=== PATIENT | male | born 1990 | race Caucasian/White ===

== ENCOUNTER 2023-10-22 22:33 | Emergency (ER) | payer OTHER ==
[2023-10-22 22:49] VITALS: TEMP 97.8
[2023-10-22 23:14] LABS: Absolute Neutrophil Ct (ANC) 4.81 x10^3/uL (1.4-6.9); BASOPHIL % 0.4 % (0.0-0.4); Basophil (Absolute #) 0.03 x10^3/uL (0-0.4); Eosinophil % 2.8 % (0.00-5.0); Hematocrit 40.4 % (42-50); Hemoglobin 13.4 g/dL (12.5-18.0); IMMATURE GRAN # 0.02 x10^3u/L (0.00-0.03); IMMATURE GRAN % 0.3 % (0.00-0.4); Lymphocyte (Absolute #) 1.69 x10^3/uL (1.0-4.6); Mean Cell Volume 95.7 fL (78-100); Mean Corpuscular Hemoglobin 31.8 pg (26-32); Mean Corpuscular Hgb Concent. 33.2 g/dL (32-36); Mean Platelet Volume 11.4 fL (7.5-11.0); Monocytes % 4.3 % (0.0-12.0); Neutrophil % 68.2 % (36.0-66.0); Platelet Count 126 x10^3/uL (150-450); Red Blood Count 4.22 x10^6/uL (4.1-5.6); Red Cell Distribution Width 13.5 % (11.5-14.0); White Blood Count 7.1 x10^3/uL (4.0-10.5)
[2023-10-22 23:31] LABS: ACETAMINOPHEN < 10 ug/ml (10-30); ETHYL ALCOHOL < 10 mg/dL (0-10); SALICYLATE < 1.0 mg/dL (2-20)
[2023-10-22 23:32] LABS: ALBUMIN 4.7 g/dL (3.5-5.0); ANION GAP 17.5 MEQ/L (5-15); BILIRUBIN,TOTAL 0.4 mg/dL (0.2-1.3); Calcium 9.3 mg/dL (8.4-10.2); Creatinine 1 1.29 mg/dL (0.66-1.25); EST GLOMERULAR FILTRATION RATE 75.1 ML/MIN; Potassium 3.7 mmol/L (3.5-5.1); Total Protein 7.1 g/dL (6.3-8.2)
--- NOTE | 2023-10-22 23:37 | ERPHSYRPT ---
- History of Present Illness Source: EMS Exam Limitations: clinical condition Patient Subjective Stated Complaint: PT IS SEDATED PER EMS Triage Nursing Assessment: Pt presents to the ER by [facility] for seizure that occurred at approx 2100. Pt reported to had been seizing for 1 hour prior to EMS arrive. Full tonic-clonic seizures upon EMS arrival. EMS gave pt 2mg Narcan and 5mg Versed. Pt arrives to ER sedated and responsive to painful stimuli. Pt has hx of Seizures. Skin is pale, warm, and dry. noted to have slight decorticate posterioring. Pt pupils are PERRL 2mm bilaterally. Respirations are shallow but equal. Lungs clear throughout. Abdomen soft and non tender. Physician History: Patient is a 30-year-old male with a known seizure disorder who had a seizure at his house this evening. [facility] arrived at the scene and gave the patient 5 mg IV Versed and placed a nasal trumpet in. Patient arrived to the ER somnolent but with a good airway and was gradually starting to awaken. Baseline/Normal Cognition: alert oriented x 3 Allergies/Adverse Reactions: sulfamethoxazole [From Bactrim] Allergy (Unknown, Verified 10/22/23 22:50) trimethoprim [From Bactrim] Allergy (Unknown, Verified 10/22/23 22:50) Home Medications: Lamotrigine 100 mg [lamICTAL 100MG TABLET] 100 mg PO HS 10/22/23 [History] Levetiracetam 500 MG/5 ML [Keppra 500 MG/5 ML] 1,500 mg PO BID 10/22/23 [History] Hx Tetanus, Diphtheria Vaccination/Date Given: No (unknown) Hx Influenza Vaccination/Date Given: No (unknown) Hx Pneumococcal Vaccination/Date Given: No (unknown) Immunizations Up to Date: No (unknown) Travel Risk - International Travel Have you traveled outside of the country in past 3 weeks: No - Coronavirus Screening Are you exhibiting any of the following symptoms?: No Close contact with a COVID-19 positive Pt in past 14-21 Days: No - Vaccine Status Have you recieved a Covid-19 vaccination: No (unknown) - Review of Systems All Other Systems: Unable due to condition - Past Medical History Pertinent Past Medical History: Yes Neurological History: Epilepsy Other Medical History: unknown hx other than epilespy - Past Surgical History Past Surgical History: No (unknown) - Social History Smoking Status: Unknown if ever smoked Exposure to second hand smoke: (unknown) Patient Lives Alone: (unknown) - Nursing Vital Signs Nursing Vital Signs: Initial Vital Signs Temperature 97.8 F 10/22/23 22:36 Pulse Rate 82 10/22/23 22:36 Respiratory Rate 18 10/22/23 22:36 Blood Pressure 106/62 10/22/23 22:36 O2 Sat by Pulse Oximetry 100 10/22/23 22:36 Pain Scale Pain Intensity 0 WNL - [place] Coma Scale Best Eye Response ([place]): (3) open to voice Best Verbal Response ([place]): (4) confused conversation Best Motor Response ([place]): (5) localizes to pain [place] Total: 12 - Physical Exam General Appearance: lethargy (Postictal) Eye Exam: bilateral eye: normal inspection, PERRL, EOMI Ears, Nose, Throat Exam: normal ENT inspection, TMs normal, pharynx normal, moist mucous membranes Neck Exam: normal inspection, non-tender, supple, full range of motion, No meningismus, No mass, No Brudzinski, No Kernig's, No carotid bruit Respiratory: normal breath sounds, lungs clear, airway intact, No respiratory distress Cardiovascular: regular rate/rhythm, normal heart sounds, normal peripheral pulses, capillary refill <2 sec, No murmur Gastrointestinal: soft, normal bowel sounds, No tenderness Back Exam: normal inspection, normal range of motion Extremity Exam: normal inspection, normal range of motion Peripheral Pulses: carotid (R): 2+, carotid (L): 2+ Mental Status: lethargy DTR: bicep (R): 2+, bicep (L): 2+ Skin Exam: pale SpO2 Interpretation: normal SpO2: 99 O2 Delivery: Room Air - Course Nursing assessment & vital signs reviewed: Yes EKG Interpreted by Me: RATE (Normal sinus rhythm/rate 73/normal QT-QTc/right bundle branch block/nonspecific ST- T wave changes.) - CT Exams Head CT Interpretation: Tele-radiologist Report (Mildly dilated ventricles) Ordered Tests: Active Orders 24 hr Category Date Time Status EKG-ER Only STAT Care 10/22/23 22:38 Active HEAD WITHOUT CONTRAST [CT] Stat Exams 10/22/23 22:42 Completed ACETAMINOPHEN Stat Lab 10/22/23 23:10 Completed CBC W DIFF Stat Lab 10/22/23 23:10 Completed CMP Stat Lab 10/22/23 23:10 Completed ETHYL ALCOHOL Stat Lab 10/22/23 23:10 Completed SALICYLATE Stat Lab 10/22/23 23:10 Completed TROPONIN Q4H Lab 10/22/23 23:10 Completed TROPONIN Q4H Lab 10/23/23 02:45 Ordered TROPONIN Q4H Lab 10/23/23 06:45 Ordered Urine Triage Profile Stat Lab 10/23/23 00:40 Completed Medication Summary Discontinued Medications Generic Name Dose Route Start Last Admin Trade Name Freq PRN Reason Stop Dose Admin Acetaminophen 1,000 mg 10/23/23 00:12 10/23/23 00:34 Acetaminophen 500 Mg Tablet PO 10/23/23 00:13 1,000 mg STAT ONE Administration Acetaminophen Confirm 10/23/23 00:30 Acetaminophen 500 Mg Tablet Administered 10/23/23 00:31 Dose 1,000 mg .ROUTE .STK-MED ONE Levetiracetam 500 mg/ Dextrose 105 mls @ 400 mls/hr 10/22/23 23:49 10/23/23 00:34 IV 10/23/23 00:04 400 mls/hr STAT ONE Administration Dextrose Confirm 10/23/23 00:31 D5w 100ml Mini Bag 100 Ml Administered 10/23/23 00:32 Dose 100 mls @ ud IV .STK-MED ONE Levetiracetam Confirm 10/23/23 00:30 Levetiracetam 500 Mg/5 Ml Vial Administered 10/23/23 00:31 Dose 500 mg .ROUTE .STK-MED ONE Lab/Rad Data: Laboratory Result Diagrams 10/22/23 23:10 10/22/23 23:10 Laboratory Results 10/23/23 10/22/23 10/22/23 Range/Units 00:40 23:10 23:10 WBC (4.0-10.5) x10^3/uL RBC (4.1-5.6) x10^6/uL Hgb (12.5-18.0) g/dL Hct (42-50) % MCV (78-100) fL MCH (26-32) pg MCHC (32-36) g/dL RDW (11.5-14.0) % Plt Count (150-450) x10^3/uL MPV (7.5-11.0) fL Gran % (36.0-66.0) % Immature Gran % (Auto) (0.00-0.4) % Nucleat RBC Rel Count (0.00-0.1) % Eos # (Auto) (0-0.5) x10^3/uL Immature Gran # (Auto) (0.00-0.03) x10^3u/L Absolute Lymphs (auto) (1.0-4.6) x10^3/uL Absolute Monos (auto) (0.0-1.3) x10^3/uL Absolute Nucleated RBC (0.00-0.01) x10^3u/L Lymphocytes % (24.0-44.0) % Monocytes % (0.0-12.0) % Eosinophils % (0.00-5.0) % Basophils % (0.0-0.4) % Absolute Granulocytes (1.4-6.9) x10^3/uL Basophils # (0-0.4) x10^3/uL Sodium (137-145) mmol/L Potassium (3.5-5.1) mmol/L Chloride (98-107) mmol/L Carbon Dioxide (22-30) mmol/L Anion Gap (5-15) MEQ/L BUN (9-20) mg/dL Creatinine (0.66-1.25) mg/dL Estimated GFR ML/MIN Glucose (74-106) mg/dL Calcium (8.4-10.2) mg/dL Total Bilirubin (0.2-1.3) mg/dL AST (17-59) U/L ALT (0-50) U/L Alkaline Phosphatase (38-126) U/L Troponin I < 0.012 (0.000-0.034) ng/mL Serum Total Protein (6.3-8.2) g/dL Albumin (3.5-5.0) g/dL Salicylates < 1.0 L (2-20) mg/dL Urine Opiates Level NEGATIVE (NEGATIVE) Ur Methadone NEGATIVE (NEGATIVE) Acetaminophen < 10 L (10-30) ug/ml Urine Barbiturates NEGATIVE (NEGATIVE) Ur Phencyclidine (PCP) NEGATIVE (NEGATIVE) Urine Amphetamine NEGATIVE (NEGATIVE) U Benzodiazepine Level POSITIVE A (NEGATIVE) Urine Cocaine NEGATIVE (NEGATIVE) Urine Marijuana (THC) NEGATIVE (NEGATIVE) Ethyl Alcohol < 10 (0-10) mg/dL 10/22/23 10/22/23 Range/Units 23:10 23:10 WBC 7.1 (4.0-10.5) x10^3/uL RBC 4.22 (4.1-5.6) x10^6/uL Hgb 13.4 (12.5-18.0) g/dL Hct 40.4 L (42-50) % MCV 95.7 (78-100) fL MCH 31.8 (26-32) pg MCHC 33.2 (32-36) g/dL RDW 13.5 (11.5-14.0) % Plt Count 126 L (150-450) x10^3/uL MPV 11.4 H (7.5-11.0) fL Gran % 68.2 H (36.0-66.0) % Immature Gran % (Auto) 0.3 (0.00-0.4) % Nucleat RBC Rel Count 0.0 (0.00-0.1) % Eos # (Auto) 0.20 (0-0.5) x10^3/uL Immature Gran # (Auto) 0.02 (0.00-0.03) x10^3u/L Absolute Lymphs (auto) 1.69 (1.0-4.6) x10^3/uL Absolute Monos (auto) 0.30 (0.0-1.3) x10^3/uL Absolute Nucleated RBC 0.00 (0.00-0.01) x10^3u/L Lymphocytes % 24.0 (24.0-44.0) % Monocytes % 4.3 (0.0-12.0) % Eosinophils % 2.8 (0.00-5.0) % Basophils % 0.4 (0.0-0.4) % Absolute Granulocytes 4.81 (1.4-6.9) x10^3/uL Basophils # 0.03 (0-0.4) x10^3/uL Sodium 139 (137-145) mmol/L Potassium 3.7 (3.5-5.1) mmol/L Chloride 102 (98-107) mmol/L Carbon Dioxide 23 (22-30) mmol/L Anion Gap 17.5 H (5-15) MEQ/L BUN 16 (9-20) mg/dL Creatinine 1.29 H (0.66-1.25) mg/dL Estimated GFR 75.1 ML/MIN Glucose 95 (74-106) mg/dL Calcium 9.3 (8.4-10.2) mg/dL Total Bilirubin 0.40 (0.2-1.3) mg/dL AST 33 (17-59) U/L ALT 17 (0-50) U/L Alkaline Phosphatase 53 (38-126) U/L Troponin I (0.000-0.034) ng/mL Serum Total Protein 7.1 (6.3-8.2) g/dL Albumin 4.7 (3.5-5.0) g/dL Salicylates (2-20) mg/dL Urine Opiates Level (NEGATIVE) Ur Methadone (NEGATIVE) Acetaminophen (10-30) ug/ml Urine Barbiturates (NEGATIVE) Ur Phencyclidine (PCP) (NEGATIVE) Urine Amphetamine (NEGATIVE) U Benzodiazepine Level (NEGATIVE) Urine Cocaine (NEGATIVE) Urine Marijuana (THC) (NEGATIVE) Ethyl Alcohol (0-10) mg/dL - Progress Progress: improved Progress Note: 10/23/23 01:33 Nursing note and vital signs reviewed. No food or housing insecurity noted. All lab results reviewed and shared with patient. CT of head result reviewed and shared with patient. Patient arrived postictal and sedated due to Versed administration by EMS. Patient had a great airway upon arrival and continued to maintain a great airway. Patient gradually became more awake and alert and was eventually back to his self. He was given 500 g IV Keppra while in the ER. Patient is neurologic exam demonstrated no focal weakness with normal mentation when his postictal period resolved. He was advised not to drive until he is cleared by his family MD or neurologist. Also directed to continue his current seizure medications. He was discharged in stable condition. Additional history for patient's significant other. Counseled pt/family regarding: lab results, diagnosis, need for follow-up, rad results Medical Desision Making - Independent Historian Additional History obtained from: Spouse - Diagnostic Testing Diagnostic test were ordered, analyzed, and reviewed by me: Yes Radiological Interpretation: Reviewed by me - Risk of complications The pt has a mod risk of morbidity or mortality based on: Need for prescription drug management - Departure Departure Disposition: Home Clinical Impression: Seizure Condition: Stable Critical Care Time: No Referrals: BAY MORRIS FNP [Primary Care Provider] - Follow up/PCP as directed Instructions: Seizures, Adult (DC) Additional Instructions: Continue current seizure medication. Follow-up with your neurologist or family MD in 1 to 2 days. Continue current seizure medications No driving until cleared by your neurologist or family MD. Return to ER as needed.
[2023-10-22] MEDS ORDERED: Keppra 500 MG/5 ML*** 500 MG in D5w 100ML Mini Bag 100 ML 100 ML IV ONE (23:49)
--- NOTE | 2023-10-23 00:08 | XRAY ---
CLINICAL HISTORY: seizure TECHNIQUE: An axial CT scan of the brain was performed from the skull base to the high parietal region. Coronal and sagittal reconstructive images were also obtained. COMPARISON: None. FINDINGS: The visualized brain parenchyma shows a normal appearance. No focal parenchymal abnormalities are demonstrated. Thompson-white matter differentiation is maintained. No midline shifts or deformity. No intracerebral or extra axial hematoma. Mildly dilated ventricles (Pro index: 0.36) Normal CT appearance of the posterior fossa structures namely the cerebellar hemispheres, brainstem, and cerebellar peduncles. The IACs are unremarkable. The cerebello-pontine angles are clear. The pituitary gland, the pineal gland, and the optic chiasm are unremarkable. The osseous structures in the skull base are unremarkable. No definite calvarium fractures. Polypoid mucosal thickening of the left maxillary sinus. Mucosal thickening of anterior cells of the left ethmoid sinus. IMPRESSION: Mild hydrocephalus. (Pro index:0.36) Polypoid mucosal thickening of the left maxillary sinus. Mucosal thickening of anterior cells of the left ethmoid sinus. Electronically Signed by: Angela Simpson MD. (10/23/2023 00:03:20 EST)
[2023-10-23] MEDS ORDERED: TYLENOL EXTRA STRENGTH 500 MG PO ONE (00:12)
[2023-10-23] MEDS ORDERED: TYLENOL EXTRA STRENGTH 500 MG ONE (00:30)
[2023-10-23] MEDS ORDERED: Keppra 500 MG/5 ML ONE (00:30)
[2023-10-23] MEDS ORDERED: D5w 100ML Mini Bag 100 ML 100 ML IV ONE (00:31)
[2023-10-23 00:35] VITALS: O2SAT 99
[2023-10-23 01:00] LABS: Amphetamine,Urine NEGATIVE (NEGATIVE); Barbiturate,Urine NEGATIVE (NEGATIVE); Benzodiazepine,Urine POSITIVE (NEGATIVE); Cocaine,Urine NEGATIVE (NEGATIVE); Methadone,Urine NEGATIVE (NEGATIVE); Opiate,Urine NEGATIVE (NEGATIVE); PCP,Urine NEGATIVE (NEGATIVE); THC,Urine NEGATIVE (NEGATIVE)
[2023-10-23 01:25] VITALS: BP 113/64; PULSE 44; RESP 13
== END 2023-10-23 01:40 | disposition home or self-care (01) ==
LOC: ED 22:33 → EDBD 22:33 → ED 10-23 01:40
DX: G40.909 Epilepsy, unspecified, not intractable, without status epilepticus (principal); Z79.899 Other long term (current) drug therapy
CPT/HCPCS: 36415; 70450; 80053; 80143; 80179; 80307; 82077; 84484; 85025; 93005; 96365; 99284; J1953; A9270-GY

== ENCOUNTER 2024-01-03 19:14 | Emergency (ER) | payer OTHER ==
[2024-01-03 19:32] LABS: Absolute Neutrophil Ct (ANC) 2.57 x10^3/uL (1.4-6.9); BASOPHIL % 0.7 % (0.0-0.4); Basophil (Absolute #) 0.04 x10^3/uL (0-0.4); Eosinophil % 6.7 % (0.00-5.0); Eosinophil (Absolute #) 0.37 x10^3/uL (0-0.5); IMMATURE GRAN # 0.01 x10^3u/L (0.00-0.03); IMMATURE GRAN % 0.2 % (0.00-0.4); Lymphocyte (Absolute #) 2.22 x10^3/uL (1.0-4.6); Lymphocytes % 40.4 % (24.0-44.0); Mean Cell Volume 95.5 fL (78-100); Mean Corpuscular Hemoglobin 31.8 pg (26-32); Mean Corpuscular Hgb Concent. 33.3 g/dL (32-36); Mean Platelet Volume 11.5 fL (7.5-11.0); Monocyte (Absolute #) 0.29 x10^3/uL (0.0-1.3); Monocytes % 5.3 % (0.0-12.0); Neutrophil % 46.7 % (36.0-66.0); Platelet Count 134 x10^3/uL (150-450); Red Blood Count 4.71 x10^6/uL (4.1-5.6); Red Cell Distribution Width 13.5 % (11.5-14.0); White Blood Count 5.5 x10^3/uL (4.0-10.5)
[2024-01-03 19:33] VITALS: TEMP 97.8
[2024-01-03] MEDS ORDERED: Sodium Chloride 0.9% 1000 ML 1,000 ML ONE (19:33)
[2024-01-03] MEDS: Sodium Chloride 0.9% 1000 ML 1,000 ML IV STA (19:34)
--- NOTE | 2024-01-03 19:43 | ERPHSYRPT ---
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 [place] who had a witnessed seizure at his home while out playing soccer with his niece and nephew. Patient was brought into the emergency department by the ambulance service. Patient states that he took his medications today. He did not suffer any head injury. He denies loss of bowel or bladder control. He does have a mild generalized headache. Patient was seen here 2-1/2 months ago for the same issue. There is been no changes in his medications. After the seizure breakthrough in October 2023, he has not yet seen his neurologist. Per his report, they states that if he has another seizure, which she did today, then they will look at changing his medications around. Patient denies chest pain. Patient denies shortness of breath. He has no abdominal pain. He denies nausea vomiting or diarrhea symptoms. Timing/Duration: today Severity: mild Character of Deficits: none Deficits: no difficulties Baseline/Normal Cognition: alert oriented x 3 Current Cognition: alert oriented x 3 Baseline Gait: walks w/o assistance Associated Symptoms: headache (Mild global) Allergies/Adverse Reactions: sulfamethoxazole [From Bactrim] Allergy (Unknown, Verified 01/03/24 19:16) trimethoprim [From Bactrim] Allergy (Unknown, Verified 01/03/24 19:16) Home Medications: Lamotrigine 100 mg [lamICTAL 100MG TABLET] 100 mg PO BID 10/22/23 [History] Levetiracetam 500 MG/5 ML [Keppra 500 MG/5 ML] 1,500 mg PO BID 10/22/23 [History] Hx Tetanus, Diphtheria Vaccination/Date Given: No Hx Influenza Vaccination/Date Given: No Hx Pneumococcal Vaccination/Date Given: No Immunizations Up to Date: No Travel Risk - International Travel Have you traveled outside of the country in past 3 weeks: No - Emerging Infectious Disease Are you exhibiting symptoms associated with any current EIDs: No - Review of Systems Constitutional: No Symptoms Eyes: No Symptoms Ears, Nose, & Throat: No Symptoms Respiratory: No Symptoms Cardiac: No Symptoms Abdominal/Gastrointestinal: No Symptoms Genitourinary Symptoms: No Symptoms Musculoskeletal: No Symptoms Skin: No Symptoms Neurological: Headache (Mild global) Psychological: No Symptoms Endocrine: No Symptoms Hematologic/Lymphatic: No Symptoms Immunological/Allergic: No Symptoms All Other Systems: Reviewed and Negative - Past Medical History Pertinent Past Medical History: Yes Neurological History: Epilepsy Other Medical History: unknown hx other than epilespy - Past Surgical History Past Surgical History: Yes Neuro Surgical History: No Pertinent History Cardiac: No Pertinent History Respiratory: No Pertinent History Gastrointestinal: No Pertinent History Genitourinary: No Pertinent History Musculoskeletal: No Pertinent History Male Surgical History: No Pertinent History - Social History Smoking Status: Current every day smoker Exposure to second hand smoke: Yes (unknown) Drug Use: none Patient Lives Alone: (unknown) - Nursing Vital Signs Nursing Vital Signs: Initial Vital Signs Temperature 97.8 F 01/03/24 19:14 Pulse Rate 79 01/03/24 19:14 Respiratory Rate 18 01/03/24 19:14 Blood Pressure 120/77 01/03/24 19:14 O2 Sat by Pulse Oximetry 99 01/03/24 19:14 Pain Scale Pain Intensity 0 - [place] Coma Scale Best Eye Response (Zander): (4) open spontaneously Best Verbal Response ([place]): (5) oriented Best Motor Response ([place]): (6) obeys commands [place] Total: 15 - Physical Exam General Appearance: no apparent distress, alert, anxiety, thin Eye Exam: bilateral eye: normal inspection, PERRL, EOMI Ears, Nose, Throat Exam: normal ENT inspection, moist mucous membranes Neck Exam: normal inspection, non-tender, supple, full range of motion Respiratory: normal breath sounds, lungs clear, airway intact, No chest tenderness, No respiratory distress Cardiovascular: regular rate/rhythm, normal heart sounds, normal peripheral pulses Gastrointestinal: soft, normal bowel sounds, No tenderness Rectal Exam: not done Back Exam: normal inspection, normal range of motion, No CVA tenderness Extremity Exam: normal inspection, normal range of motion, pelvis stable Mental Status: alert, oriented x 3, 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 Normal-appearing V1 and V3) Ordered Tests: Active Orders 24 hr Category Date Time Status Clean Catch Urine Specimen STAT Care 01/03/24 19:24 Active EKG-ER Only STAT Care 01/03/24 19:24 Active IV Insertion STAT Care 01/03/24 19:24 Active HEAD WITHOUT CONTRAST [CT] Stat Exams 01/03/24 19:43 Taken ACETAMINOPHEN Stat Lab 01/03/24 19:15 Completed CBC W DIFF Stat Lab 01/03/24 19:15 Completed CMP Stat Lab 01/03/24 19:15 Completed ETHYL ALCOHOL Stat Lab 01/03/24 19:15 Completed MAG [MAGNESIUM] Stat Lab 01/03/24 19:15 Completed SALICYLATE Stat Lab 01/03/24 19:15 Completed TROPONIN Q4H Lab 01/03/24 19:15 Completed TROPONIN Q4H Lab 01/04/24 00:30 Ordered TROPONIN Q4H Lab 01/04/24 04:30 Ordered UA W/RFX UR CULTURE Stat Lab 01/03/24 20:55 Completed Urine Triage Profile Stat Lab 01/03/24 20:55 Completed Medication Summary Discontinued Medications Generic Name Dose Route Start Last Admin Trade Name Rickiq PRN Reason Stop Dose Admin Sodium Chloride 1,000 mls @ 999 mls/hr 01/03/24 19:24 01/03/24 20:38 Sodium Chloride 0.9% 1000 Ml IV 01/03/24 20:24 Infused .Q1H1M STA Infusion Sodium Chloride Confirm 01/03/24 19:33 Sodium Chloride 0.9% 1000 Ml Administered 01/03/24 19:34 Dose 1,000 mls @ ud .ROUTE .STK-MED ONE Levetiracetam 500 mg/ Dextrose 105 mls @ 400 mls/hr 01/03/24 19:47 01/03/24 2 0:01 IV 01/03/24 20:02 400 mls/hr STAT ONE Administration Dextrose Confirm 01/03/24 20:00 D5w 100ml Mini Bag 100 Ml Administered 01/03/24 20:01 Dose 100 mls @ ud IV .STK-MED ONE Levetiracetam Confirm 01/03/24 20:00 Levetiracetam 500 Mg/5 Ml Vial Administered 01/03/24 20:01 Dose 500 mg .ROUTE .STK-MED ONE Lab/Rad Data: Laboratory Result Diagrams 01/03/24 19:15 01/03/24 19:15 Laboratory Results 01/03/24 01/03/24 01/03/24 Range/Units 20:55 20:55 19:15 WBC (4.0-10.5) x10^3/uL RBC (4.1-5.6) x10^6/uL Hgb (12.5-18.0) g/dL Hct (42-50) % MCV (78-100) fL MCH (26-32) pg MCHC (32-36) g/dL RDW (11.5-14.0) % Plt Count (150-450) x10^3/uL MPV (7.5-11.0) fL Gran % (36.0-66.0) % Immature Gran % (Auto) (0.00-0.4) % Nucleat RBC Rel Count (0.00-0.1) % Eos # (Auto) (0-0.5) x10^3/uL Immature Gran # (Auto) (0.00-0.03) x10^3u/L Absolute Lymphs (auto) (1.0-4.6) x10^3/uL Absolute Monos (auto) (0.0-1.3) x10^3/uL Absolute Nucleated RBC (0.00-0.01) x10^3u/L Lymphocytes % (24.0-44.0) % Monocytes % (0.0-12.0) % Eosinophils % (0.00-5.0) % Basophils % (0.0-0.4) % Absolute Granulocytes (1.4-6.9) x10^3/uL Basophils # (0-0.4) x10^3/uL Sodium (135-145) mmol/L Potassium (3.5-5.1) mmol/L Chloride (98-107) mmol/L Carbon Dioxide (22-30) mmol/L Anion Gap (5-15) MEQ/L BUN (9-20) mg/dL Creatinine (0.66-1.25) mg/dL Estimated GFR ML/MIN Glucose (74-106) mg/dL Calcium (8.4-10.2) mg/dL Magnesium (1.6-2.3) mg/dL Total Bilirubin (0.2-1.3) mg/dL AST (17-59) U/L ALT (0-50) U/L Alkaline Phosphatase (38-126) U/L Troponin I < 0.012 (0.000-0.033) ng/mL Serum Total Protein (6.3-8.2) g/dL Albumin (3.5-5.0) g/dL Urine Color Yellow (Yellow) Urine Appearance Clear (Clear) Urine pH 5.0 (4.6-8.0) Ur Specific [place] 1.020 (1.005-1.030) Urine Protein Negative (Negative) Urine Glucose (UA) Negative (Negative) mg/dL Urine Ketones Trace A (Negative) Urine Blood Negative (Negative) Urine Nitrite Negative (Negative) Urine Bilirubin Negative (Negative) Urine Urobilinogen 0.2 (0.2) mg/dL Ur Leukocyte Esterase Negative (Negative) U Hyaline Cast (Auto) 20-50 (0-2) /LPF Urine Microscopic RBC 3-5 (0-5) /HPF Urine Microscopic WBC 0-2 (0-5) /HPF Ur Epithelial Cells None Seen (None Seen) /HPF Urine Bacteria None Seen (None Seen) /HPF Urine Culture Reflexed NO (NO) Salicylates (2-20) mg/dL Urine Opiates Level NEGATIVE (NEGATIVE) Ur Methadone NEGATIVE (NEGATIVE) Acetaminophen (10-30) ug/ml Urine Barbiturates NEGATIVE (NEGATIVE) Ur Phencyclidine (PCP) NEGATIVE (NEGATIVE) Urine Amphetamine NEGATIVE (NEGATIVE) U Benzodiazepine Level NEGATIVE (NEGATIVE) Urine Cocaine NEGATIVE (NEGATIVE) Urine Marijuana (THC) NEGATIVE (NEGATIVE) Ethyl Alcohol (0-10) mg/dL 01/03/24 01/03/24 01/03/24 Range/Units 19:15 19:15 19:15 WBC (4.0-10.5) x10^3/uL RBC (4.1-5.6) x10^6/uL Hgb (12.5-18.0) g/dL Hct (42-50) % MCV (78-100) fL MCH (26-32) pg MCHC (32-36) g/dL RDW (11.5-14.0) % Plt Count (150-450) x10^3/uL MPV (7.5-11.0) fL Gran % (36.0-66.0) % Immature Gran % (Auto) (0.00-0.4) % Nucleat RBC Rel Count (0.00-0.1) % Eos # (Auto) (0-0.5) x10^3/uL Immature Gran # (Auto) (0.00-0.03) x10^3u/L Absolute Lymphs (auto) (1.0-4.6) x10^3/uL Absolute Monos (auto) (0.0-1.3) x10^3/uL Absolute Nucleated RBC (0.00-0.01) x10^3u/L Lymphocytes % (24.0-44.0) % Monocytes % (0.0-12.0) % Eosinophils % (0.00-5.0) % Basophils % (0.0-0.4) % Absolute Granulocytes (1.4-6.9) x10^3/uL Basophils # (0-0.4) x10^3/uL Sodium 141 (135-145) mmol/L Potassium 4.4 (3.5-5.1) mmol/L Chloride 102 (98-107) mmol/L Carbon Dioxide 31 H (22-30) mmol/L Anion Gap 12.0 (5-15) MEQ/L BUN 18 (9-20) mg/dL Creatinine 1.21 (0.66-1.25) mg/dL Estimated GFR 80.6 ML/MIN Glucose 152 H (74-106) mg/dL Calcium 9.9 (8.4-10.2) mg/dL Magnesium 1.9 (1.6-2.3) mg/dL Total Bilirubin 0.60 (0.2-1.3) mg/dL AST 27 (17-59) U/L ALT 13 (0-50) U/L Alkaline Phosphatase 65 (38-126) U/L Troponin I (0.000-0.033) ng/mL Serum Total Protein 8.5 H (6.3-8.2) g/dL Albumin 5.2 H (3.5-5.0) g/dL Urine Color (Yellow) Urine Appearance (Clear) Urine pH (4.6-8.0) Ur Specific [place] (1.005-1.030) Urine Protein (Negative) Urine Glucose (UA) (Negative) mg/dL Urine Ketones (Negative) Urine Blood (Negative) Urine Nitrite (Negative) Urine Bilirubin (Negative) Urine Urobilinogen (0.2) mg/dL Ur Leukocyte Esterase (Negative) U Hyaline Cast (Auto) (0-2) /LPF Urine Microscopic RBC (0-5) /HPF Urine Microscopic WBC (0-5) /HPF Ur Epithelial Cells (None Seen) /HPF Urine Bacteria (None Seen) /HPF Urine Culture Reflexed (NO) Salicylates < 1.0 L (2-20) mg/dL Urine Opiates Level (NEGATIVE) Ur Methadone (NEGATIVE) Acetaminophen < 10 L (10-30) ug/ml Urine Barbiturates (NEGATIVE) Ur Phencyclidine (PCP) (NEGATIVE) Urine Amphetamine (NEGATIVE) U Benzodiazepine Level (NEGATIVE) Urine Cocaine (NEGATIVE) Urine Marijuana (THC) (NEGATIVE) Ethyl Alcohol < 10 (0-10) mg/dL 01/03/24 Range/Units 19:15 WBC 5.5 (4.0-10.5) x10^3/uL RBC 4.71 (4.1-5.6) x10^6/uL Hgb 15.0 (12.5-18.0) g/dL Hct 45.0 (42-50) % MCV 95.5 (78-100) fL MCH 31.8 (26-32) pg MCHC 33.3 (32-36) g/dL RDW 13.5 (11.5-14.0) % Plt Count 134 L (150-450) x10^3/uL MPV 11.5 H (7.5-11.0) fL Gran % 46.7 (36.0-66.0) % Immature Gran % (Auto) 0.2 (0.00-0.4) % Nucleat RBC Rel Count 0.0 (0.00-0.1) % Eos # (Auto) 0.37 (0-0.5) x10^3/uL Immature Gran # (Auto) 0.01 (0.00-0.03) x10^3u/L Absolute Lymphs (auto) 2.22 (1.0-4.6) x10^3/uL Absolute Monos (auto) 0.29 (0.0-1.3) x10^3/uL Absolute Nucleated RBC 0.00 (0.00-0.01) x10^3u/L Lymphocytes % 40.4 (24.0-44.0) % Monocytes % 5.3 (0.0-12.0) % Eosinophils % 6.7 H (0.00-5.0) % Basophils % 0.7 (0.0-0.4) % Absolute Granulocytes 2.57 (1.4-6.9) x10^3/uL Basophils # 0.04 (0-0.4) x10^3/uL Sodium (135-145) mmol/L Potassium (3.5-5.1) mmol/L Chloride (98-107) mmol/L Carbon Dioxide (22-30) mmol/L Anion Gap (5-15) MEQ/L BUN (9-20) mg/dL Creatinine (0.66-1.25) mg/dL Estimated GFR ML/MIN Glucose (74-106) mg/dL Calcium (8.4-10.2) mg/dL Magnesium (1.6-2.3) mg/dL Total Bilirubin (0.2-1.3) mg/dL AST (17-59) U/L ALT (0-50) U/L Alkaline Phosphatase (38-126) U/L Troponin I (0.000-0.033) ng/mL Serum Total Protein (6.3-8.2) g/dL Albumin (3.5-5.0) g/dL Urine Color (Yellow) Urine Appearance (Clear) Urine pH (4.6-8.0) Ur Specific [place] (1.005-1.030) Urine Protein (Negative) Urine Glucose (UA) (Negative) mg/dL Urine Ketones (Negative) Urine Blood (Negative) Urine Nitrite (Negative) Urine Bilirubin (Negative) Urine Urobilinogen (0.2) mg/dL Ur Leukocyte Esterase (Negative) U Hyaline Cast (Auto) (0-2) /LPF Urine Microscopic RBC (0-5) /HPF Urine Microscopic WBC (0-5) /HPF Ur Epithelial Cells (None Seen) /HPF Urine Bacteria (None Seen) /HPF Urine Culture Reflexed (NO) Salicylates (2-20) mg/dL Urine Opiates Level (NEGATIVE) Ur Methadone (NEGATIVE) Acetaminophen (10-30) ug/ml Urine Barbiturates (NEGATIVE) Ur Phencyclidine (PCP) (NEGATIVE) Urine Amphetamine (NEGATIVE) U Benzodiazepine Level (NEGATIVE) Urine Cocaine (NEGATIVE) Urine Marijuana (THC) (NEGATIVE) Ethyl Alcohol (0-10) mg/dL - Progress Progress: improved, re-examined Progress Note: 01/03/24 20:24 My medical decision making and assignment of moderate level complexity to this patient's medical issue is based on review of the patient's past medical history, review the patient's medication list, review the patient drug allergy list, history present illness and physical findings on examination. The patient's workup includes CT scan of the head, infusion of IV Keppra, placement of intravenous line, infusion normal saline solution, CBC, CMP, troponin level, magnesium level, urinalysis, urine drug screen, acetaminophen level, salicylate level, ethyl alcohol level, and CT scan of the head without contrast. 01/03/24 20:27 Differential diagnosis includes breakthrough seizure, intracranial abnormality, electrolyte abnormality, illicit drugs, dehydration, urinary tract infection 01/03/24 21:03 I interpreted the patient's laboratory data results. The urinalysis and urine triage is still pending. However, the remainder of the laboratory data results do not show any acute, emergent medical issue. CT scan of the head without contrast was interpreted by the radiologist and I reviewed the impression. This study is nonacute. There is no change when compared to CT scan of the head without contrast dated 10/22/2023. There is p ersistently prominent ventricles present. 01/03/24 21:26 The urinalysis shows no acute urinary tract infection or other acute findings. 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 Take all your medications as prescribed. Call your neurologist tomorrow morning, 01/04/2024, to make an appointment in the next 3 days and also to discuss changes in your medications if indicated.
[2024-01-03 19:54] LABS: ALBUMIN 5.2 g/dL (3.5-5.0); BILIRUBIN,TOTAL 0.6 mg/dL (0.2-1.3); Calcium 9.9 mg/dL (8.4-10.2); Creatinine 1 1.21 mg/dL (0.66-1.25); EST GLOMERULAR FILTRATION RATE 80.6 ML/MIN; Potassium 4.4 mmol/L (3.5-5.1); Total Protein 8.5 g/dL (6.3-8.2)
[2024-01-03 19:55] LABS: ACETAMINOPHEN < 10 ug/ml (10-30); ETHYL ALCOHOL < 10 mg/dL (0-10); SALICYLATE < 1.0 mg/dL (2-20)
[2024-01-03] MEDS ORDERED: Keppra 500 MG/5 ML ONE (20:00)
[2024-01-03] MEDS ORDERED: D5w 100ML Mini Bag 100 ML 100 ML IV ONE (20:00)
[2024-01-03] MEDS: Keppra 500 MG/5 ML*** 500 MG in D5w 100ML Mini Bag 100 ML 100 ML IV ONE (20:01)
[2024-01-03 21:06] LABS: ADD URINE CULTURE? NO (NO); Appearance Clear (Clear); Bacteria None Seen /HPF (None Seen); Bilirubin Negative (Negative); Blood Negative (Negative); Epithelial Cells None Seen /HPF (None Seen); Glucose, Urine Negative (Negative); Hyaline Casts 20-50 /LPF (0-2); Ketones Trace (Negative); Leukocyte Esterase Negative (Negative); Nitrite Negative (Negative); Protein,Urine Dip Negative (Negative); Urobilinogen 0.2 mg/dL (0.2); WBC 0-2 /HPF (0-5)
[2024-01-03 21:15] LABS: Amphetamine,Urine NEGATIVE (NEGATIVE); Barbiturate,Urine NEGATIVE (NEGATIVE); Benzodiazepine,Urine NEGATIVE (NEGATIVE); Cocaine,Urine NEGATIVE (NEGATIVE); Methadone,Urine NEGATIVE (NEGATIVE); Opiate,Urine NEGATIVE (NEGATIVE); PCP,Urine NEGATIVE (NEGATIVE); THC,Urine NEGATIVE (NEGATIVE)
[2024-01-03 21:32] VITALS: BP 111/70; PULSE 45; RESP 14; O2SAT 100
--- NOTE | 2024-01-04 07:41 | XRAY ---
Indication: Breakthrough seizure. Headache Multiple contiguous axial images obtained through the head without contrast. Comparison: October 22, 2023 Ventricular system remain prominent without transependymal edema. No acute intracranial hemorrhage, abnormal extra-axial fluid collection, or mass effect. Fourth ventricle is midline. Thompson white matter differentiation preserved. Bony calvarium intact. Visualized paranasal sinuses and mastoid air cells are clear. Impression: Stable prominent ventricular system. No new/acute intracranial abnormalities.
== END 2024-01-03 21:36 | disposition home or self-care (01) ==
LOC: ED 19:14
DX: G40.909 Epilepsy, unspecified, not intractable, without status epilepticus (principal); R51.9 Headache, unspecified; Z79.899 Other long term (current) drug therapy; Z72.0 Tobacco use
CPT/HCPCS: 36000; 36415; 70450; 80053; 80143; 80179; 80307; 81001; 82077; 83735; 84146; 84484; 85025; 93005; 96360; 96374; 99284; J1953

== ENCOUNTER 2024-11-24 18:00 | Emergency (ER) | payer OTHER ==
[2024-11-24 18:17] VITALS: TEMP 98.4; O2SAT 98
--- NOTE | 2024-11-24 18:41 | ERPHSYRPT ---
- History of Present Illness Time Seen by Provider: 11/24/24 18:40 Source: patient Exam Limitations: no limitations Patient Subjective Stated Complaint: Seizure. Patient states he has a known history of seizures and is currently taking medications for these. His Neurologist is Dr. Kaiser. Triage Nursing Assessment: Patient arrived by EMS. He is alert and oriented. No SOB. MCKEON WNL. Patient did not bite his tongue during seizure; states he just stares off during his seizures, doesn't shake. Physician History: Patient is a 33-year-old male history of seizure disorder presents to emergency department for evaluation of a seizure. Patient states he was moving stuff into a storage unit when the seizure occurred. Patient's last seizure was approximately a month ago. Upon arrival to our ED patient was alert and orie nted x 4. No tongue biting no urinary incontinence. We are unsure how long the seizure lasted. Patient has a headache but otherwise denies injury. No associated chest pain or shortness of breath. No nausea vomiting or diaphoresis. Patient otherwise feels well. He voices no other complaints or concerns at this time. Portions of this note were created with voice recognition technology. There may be grammatical, spelling, punctuation or sound alike errors Timing/Duration: today Severity: moderate Modifying Factors: Improves With: nothing Associated Symptoms: denies symptoms Allergies/Adverse Reactions: sulfamethoxazole [From Bactrim] Allergy (Unknown, Verified 11/24/24 18:01) trimethoprim [From Bactrim] Allergy (Unknown, Verified 11/24/24 18:01) Home Medications: Lamotrigine 100 mg [lamICTAL 100MG TABLET] 200 mg PO BID 10/22/23 [History] Levetiracetam 500 MG/5 ML [Keppra 500 MG/5 ML] 1,500 mg PO BID 10/22/23 [History] Sertraline HCl 50 mg [Zoloft 50 mg Tablet] 50 mg PO DAILY 11/24/24 [History] Hx Tetanus, Diphtheria Vaccination/Date Given: No Hx Influenza Vaccination/Date Given: No Hx Pneumococcal Vaccination/Date Given: No Immunizations Up to Date: Yes Travel Risk - International Travel Have you traveled outside of the country in past 3 weeks: No - Emerging Infectious Disease Are you exhibiting symptoms associated with any current EIDs: No - Review of Systems Constitutional: No Symptoms, No Fever, No Chills Eyes: No Symptoms Ears, Nose, & Throat: No Symptoms Respiratory: No Symptoms, No Cough, No Dyspnea Cardiac: No Symptoms, No Chest Pain, No Edema, No Syncope Abdominal/Gastrointestinal: No Symptoms, No Abdominal Pain, No Nausea, No Vomiting, No Diarrhea Genitourinary Symptoms: No Symptoms, No Dysuria Musculoskeletal: No Symptoms, No Back Pain, No Neck Pain Skin: No Symptoms, No Rash Neurological: No Symptoms, No Dizziness, No Focal Weakness, No Sensory Changes Psychological: No Symptoms Endocrine: No Symptoms Hematologic/Lymphatic: No Symptoms Immunological/Allergic: No Symptoms All Other Systems: Reviewed and Negative - Past Medical History Pertinent Past Medical History: Yes Neurological History: Epilepsy Psycho-Social History: Anxiety, Depression - Past Surgical History Past Surgical History: Yes Neuro Surgical History: No Pertinent History Cardiac: No Pertinent History Respiratory: No Pertinent History Gastrointestinal: No Pertinent History Genitourinary: No Pertinent History Musculoskeletal: No Pertinent History Male Surgical History: No Pertinent History - Social History Smoking Status: Current every day smoker Drug Use: none - Social Determinants of Health Will the patient participate in the screening: Declined to provide - Nursing Vital Signs Nursing Vital Signs: Initial Vital Signs Temperature 98.4 F 11/24/24 18:00 Pulse Rate 56 L 11/24/24 18:00 Respiratory Rate 17 11/24/24 18:00 Blood Pressure 134/77 11/24/24 18:00 O2 Sat by Pulse Oximetry 99 11/24/24 18:00 Pain Scale Pain Intensity 0 - Physical Exam General Appearance: no apparent distress, alert Eye Exam: PERRL/EOMI, eyes nml inspection Ears, Nose, Throat Exam: normal ENT inspection, TMs normal, pharynx normal, moist mucous membranes Neck Exam: normal inspection, non-tender, supple, full range of motion Respiratory Exam: normal breath sounds, lungs clear, No respiratory distress Cardiovascular Exam: regular rate/rhythm, normal heart sounds, normal peripheral pulses Gastrointestinal/Abdomen Exam: soft, normal bowel sounds, No tenderness, No mass Back Exam: normal inspection, normal range of motion, No CVA tenderness, No vertebral tenderness Extremity Exam: normal inspection, normal range of motion, pelvis stable Neurologic Exam: alert, oriented x 3, cooperative, normal mood/affect, sensation nml, No motor deficits Skin Exam: normal color, warm, dry, No rash Lymphatic Exam: No adenopathy SpO2 Interpretation: normal SpO2: 98 O2 Delivery: Room Air - Course Nursing assessment & vital signs reviewed: Yes EKG Interpreted by Me: RATE (45), Sinus Cecil, NORMAL AXIS, NORMAL INTERVALS, NORMAL QRS - CT Exams Head CT Interpretation: Tele-radiologist Report (No acute intracranial pathology) Ordered Tests: Active Orders 24 hr Category Date Time Status Nursing Instructor STAT Care 11/24/24 18:36 Active EKG-ER Only STAT Care 11/24/24 18:36 Active IV Insertion STAT Care 11/24/24 18:36 Active Pulse Oximetry (ED) STAT Care 11/24/24 18:36 Active HEAD WITHOUT CONTRAST [CT] Stat Exams 11/24/24 18:37 Taken CBC W DIFF Stat Lab 11/24/24 19:00 Completed CMP Stat Lab 11/24/24 19:00 Completed MAGNESIUM Stat Lab 11/24/24 19:00 Completed NT PRO BNPII Stat Lab 11/24/24 19:00 Completed TROPONIN Q4H Lab 11/24/24 19:00 Completed TROPONIN Q4H Lab 11/24/24 22:45 Ordered TROPONIN Q4H Lab 11/25/24 02:45 Ordered UA W/RFX UR CULTURE Stat Lab 11/24/24 19:40 Completed Medication Summary Discontinued Medications Generic Name Dose Route Start Last Admin Trade Name Freq PRN Reason Stop Dose Admin Acetaminophen 975 mg 11/24/24 18:51 11/24/24 19:19 Acetaminophen 325 Mg Tablet PO 11/24/24 18:52 975 mg STAT ONE Administration Acetaminophen Confirm 11/24/24 19:08 Acetaminophen 325 Mg Tablet Administered 11/24/24 19:09 Dose 975 mg .ROUTE .STK-MED ONE Acetaminophen Confirm 11/24/24 19:20 Acetaminophen 325 Mg Tablet Administered 11/24/24 19:21 Dose 975 mg .ROUTE .STK-MED ONE Prochlorperazine Edisylate 10 mg 11/24/24 18:52 11/24/24 19:21 Prochlorperazine Edisylate 10 Mg/2 Ml Vial IV 11/24/24 18:53 10 mg STAT ONE Administration Prochlorperazine Edisylate Confirm 11/24/24 19:08 Prochlorperazine Edisylate 10 Mg/2 Ml Vial Administered 11/24/24 19:09 Dose 10 mg .ROUTE .[facility] ONE Prochlorperazine Edisylate Confirm 11/24/24 19:20 Prochlorperazine Edisylate 10 Mg/2 Ml Vial Administered 11/24/24 19:21 Dose 10 [facility] Lab/Rad Data: Laboratory Result Diagrams 11/24/24 19:00 11/24/24 19:00 Laboratory Results 11/24/24 11/24/24 11/24/24 Range/Units 19:40 19:00 19:00 WBC (4.23-9.07) x10^3/uL RBC (4.63-6.08) x10^6/uL Hgb (13.7-17.5) g/dL Hct (40.1-51.0) % MCV (79.0-92.2) fL MCH (25.7-32.2) pg MCHC (32.3-36.5) g/dL RDW (11.6-14.4) % Plt Count (163-337) x10^3/uL MPV (9.4-12.4) fL Gran % (34.0-67.9) % Immature Gran % (Auto) (0.001-0.429) % Nucleat RBC Rel Count (0.00-0.2) % Eos # (Auto) (0.04-0.54) x10^3/uL Immature Gran # (Auto) (0.001-0.031) x10^3u/L Absolute Lymphs (auto) (1.32-3.57) x10^3/uL Absolute Monos (auto) (0.30-0.82) x10^3/uL Absolute Nucleated RBC (0.00-0.012) x10^3u/L Lymphocytes % (21.8-53.1) % Monocytes % (5.3-12.2) % Eosinophils % (0.8-7.0) % Basophils % (0.2-1.2) % Absolute Granulocytes (1.78-5.38) x10^3/uL Basophils # (0.01-0.08) x10^3/uL Sodium 143 (135-145) mmol/L Potassium 4.8 (3.5-5.1) mmol/L Chloride 99 (98-107) mmol/L Carbon Dioxide 35 H (22-30) mmol/L Anion Gap 13.7 (5-15) MEQ/L BUN 12 (9-20) mg/dL Creatinine 1.27 H (0.66-1.25) mg/dL Estimated GFR 76.0 ML/MIN Glucose 89 (74-106) mg/dL Calcium 10.0 (8.4-10.2) mg/dL Magnesium 2.2 (1.6-2.3) mg/dL Total Bilirubin 0.50 (0.2-1.3) mg/dL AST 38 (17-59) U/L ALT 20 (0-50) U/L Alkaline Phosphatase 66 (38-126) U/L Troponin I < 0.012 (0.000-0.033) ng/mL NT-Pro-B Natriuret Pep 55.7 (<300) pg/mL Serum Total Protein 7.8 (6.3-8.2) g/dL Albumin 5.1 H (3.5-5.0) g/dL Urine Color Yellow (Yellow) Urine Appearance Clear (Clear) Urine pH 7.5 (4.6-8.0) Ur Specific [place] 1.015 (1.005-1.030) Urine Protein Negative (Negative) Urine Glucose (UA) Negative (Negative) mg/dL Urine Ketones Negative (Negative) Urine Blood Negative (Negative) Urine Nitrite Negative (Negative) Urine Bilirubin Negative (Negative) Urine Urobilinogen 1.0 A (0.2) mg/dL Ur Leukocyte Esterase Negative (Negative) U Hyaline Cast (Auto) NONE SEEN (0-2) /LPF Urine Microscopic RBC 0-2 (0-5) /HPF Urine Microscopic WBC 0-2 (0-5) /HPF Ur Epithelial Cells None Seen (None Seen) /HPF Urine Bacteria None Seen (None Seen) /HPF Urine Culture Reflexed NO (NO) 11/24/24 Range/Units 19:00 WBC 9.1 H (4.23-9.07) x10^3/uL RBC 4.38 L (4.63-6.08) x10^6/uL Hgb 13.9 (13.7-17.5) g/dL Hct 42.8 (40.1-51.0) % MCV 97.7 H (79.0-92.2) fL MCH 31.7 (25.7-32.2) pg MCHC 32.5 (32.3-36.5) g/dL RDW 13.5 (11.6-14.4) % Plt Count 157 L (163-337) x10^3/uL MPV 10.7 (9.4-12.4) fL Gran % 68.9 H (34.0-67.9) % Immature Gran % (Auto) 0.3 (0.001-0.429) % Nucleat RBC Rel Count 0.0 (0.00-0.2) % Eos # (Auto) 0.39 (0.04-0.54) x10^3/uL Immature Gran # (Auto) 0.03 (0.001-0.031) x10^3u/L Absolute Lymphs (auto) 1.84 (1.32-3.57) x10^3/uL Absolute Monos (auto) 0.51 (0.30-0.82) x10^3/uL Absolute Nucleated RBC 0.00 (0.00-0.012) x10^3u/L Lymphocytes % 20.3 L (21.8-53.1) % Monocytes % 5.6 (5.3-12.2) % Eosinophils % 4.3 (0.8-7.0) % Basophils % 0.6 (0.2-1.2) % Absolute Granulocytes 6.25 H (1.78-5.38) x10^3/uL Basophils # 0.05 (0.01-0.08) x10^3/uL Sodium (135-145) mmol/L Potassium (3.5-5.1) mmol/L Chloride (98-107) mmol/L Carbon Dioxide (22-30) mmol/L Anion Gap (5-15) MEQ/L BUN (9-20) mg/dL Creatinine (0.66-1.25) mg/dL Estimated GFR ML/MIN Glucose (74-106) mg/dL Calcium (8.4-10.2) mg/dL Magnesium (1.6-2.3) mg/dL Total Bilirubin (0.2-1.3) mg/dL AST (17-59) U/L ALT (0-50) U/L Alkaline Phosphatase (38-126) U/L Troponin I (0.000-0.033) ng/mL NT-Pro-B Natriuret Pep (<300) pg/mL Serum Total Protein (6.3-8.2) g/dL Albumin (3.5-5.0) g/dL Urine Color (Yellow) Urine Appearance (Clear) Urine pH (4.6-8.0) Ur Specific [place] (1.005-1.030) Urine Protein (Negative) Urine Glucose (UA) (Negative) mg/dL Urine Ketones (Negative) Urine Blood (Negative) Urine Nitrite (Negative) Urine Bilirubin (Negative) Urine Urobilinogen (0.2) mg/dL Ur Leukocyte Esterase (Negative) U Hyaline Cast (Auto) (0-2) /LPF Urine Microscopic RBC (0-5) /HPF Urine Microscopic WBC (0-5) /HPF Ur Epithelial Cells (None Seen) /HPF Urine Bacteria (None Seen) /HPF Urine Culture Reflexed (NO) - Progress Progress: improved Progress Note: Spoke to patient's neurologist she advised continuing the Keppra 1000 mg twice daily and the Lamictal 200 twice a day. Patient is to assure sleep of 8 hours per night. Patient to follow-up with neurologist in 2 weeks. Plan of care conveyed to patient and his mother. They agree to follow-up as planned. Patient is a 33-year-old male history of seizure presents to our ED with a breakthrough seizure. Laboratory workup essentially nonremarkable. Patient is chronic renal insufficiency. Patient currently at his baseline. No instruction to administer antiepileptic in our ED. Vitals are stable. Will discharge pat ient home. Patient understands plan of care. He voices no other complaints or concerns at this time. Portions of this note were created with voice recognition technology. There may be grammatical, spelling, punctuation or sound alike errors Complexity of problem addressed is moderate acute complicated. No critical care time. Complex of data reviewed and analyzed is extensive. Test ordered chest reviewed results analyzed and correlated clinically with history and physical exam. Management discussed with patient's neurologist. Risk of complication and or risk of morbidity/mortality of patient management is low. Vital stable. Time spent to discharge patient is approximately 15 minutes. Plan of care established for shared decision making. No social determinants of health pres ent to impede follow-up. Portions of this note were created with voice recognition technology. There may be grammatical, spelling, punctuation or sound alike errors Counseled pt/family regarding: lab results, diagnosis, need for follow-up, rad results - Departure Departure Disposition: Home Clinical Impression: Chronic renal insufficiency, Seizure Condition: Stable Critical Care Time: No Referrals: BAY MORRIS FNP [Primary Care Provider] - Follow up/PCP as directed Additional Instructions: Please take your Lamictal 200 mg twice daily. Keppra 1000 mg twice daily. Call your neurologist in 2 weeks or sooner if needed for a follow-up appointment. Please be sure to get 8 hours of sleep at night Discharge/Care Plan ANGEL DOMINGUEZ II was seen on 11/24/24 in the Emergency Room. The patient was counseled regarding Diagnosis,Lab results, Imaging studies, need for follow up and when to return to the Emergency Room. Prescriptions given: Discharge Note I have spoken with the patient and/or caregivers. I have explained the patient's condition, diagnosis and treatment plan based on the information available to me at this time. I have answered the patient's and/or caregiver's questions and addressed any concerns. The patient and/or caregivers have as good understanding of the patient's diagnosis, condition and treatment plan as can be expected at this point. The vital signs have been stable. The patient's condition is stable and appropriate for discharge from the emergency department. The patient will pursue further outpatient evaluation with the primary care physician or other designated or consulting physician as outlined in the discharge instructions. The patient and/or caregivers are agreeable to this plan of care and follow-up instructions have been explained in detail. The patient and/or caregivers have received these instruction. The patient/and or caregivers are aware that any significant change in condition or worsening of symptoms should prompt an immediate return to this or the closest emergency department or call 911.
[2024-11-24 19:03] LABS: Absolute Neutrophil Ct (ANC) 6.25 x10^3/uL (1.78-5.38); BASOPHIL % 0.6 % (0.2-1.2); Basophil (Absolute #) 0.05 x10^3/uL (0.01-0.08); Eosinophil % 4.3 % (0.8-7.0); Eosinophil (Absolute #) 0.39 x10^3/uL (0.04-0.54); Hematocrit 42.8 % (40.1-51.0); Hemoglobin 13.9 g/dL (13.7-17.5); IMMATURE GRAN # 0.03 x10^3u/L (0.001-0.031); IMMATURE GRAN % 0.3 % (0.001-0.429); Lymphocyte (Absolute #) 1.84 x10^3/uL (1.32-3.57); Lymphocytes % 20.3 % (21.8-53.1); Mean Cell Volume 97.7 fL (79.0-92.2); Mean Corpuscular Hemoglobin 31.7 pg (25.7-32.2); Mean Corpuscular Hgb Concent. 32.5 g/dL (32.3-36.5); Mean Platelet Volume 10.7 fL (9.4-12.4); Monocyte (Absolute #) 0.51 x10^3/uL (0.30-0.82); Monocytes % 5.6 % (5.3-12.2); Neutrophil % 68.9 % (34.0-67.9); Platelet Count 157 x10^3/uL (163-337); Red Blood Count 4.38 x10^6/uL (4.63-6.08); Red Cell Distribution Width 13.5 % (11.6-14.4); White Blood Count 9.1 x10^3/uL (4.23-9.07)
[2024-11-24] MEDS ORDERED: Compazine 10 MG/2 ML ONE ×2 (19:08→19:20)
[2024-11-24] MEDS ORDERED: TYLENOL 325 MG ONE ×2 (19:08→19:20)
[2024-11-24] MEDS: TYLENOL 325 MG PO ONE (19:19)
[2024-11-24] MEDS: Compazine 10 MG/2 ML IV ONE (19:21)
[2024-11-24 19:33] LABS: ALBUMIN 5.1 g/dL (3.5-5.0); ANION GAP 13.7 MEQ/L (5-15); BILIRUBIN,TOTAL 0.5 mg/dL (0.2-1.3); Creatinine 1 1.27 mg/dL (0.66-1.25); MAGNESIUM 2.2 mg/dL (1.6-2.3); NT PRO BNPII 55.7 pg/mL (<300); Potassium 4.8 mmol/L (3.5-5.1); Total Protein 7.8 g/dL (6.3-8.2)
[2024-11-24 20:04] VITALS: BP 106/61; PULSE 45; RESP 14
[2024-11-24 20:05] LABS: Appearance Clear (Clear); Bacteria None Seen /HPF (None Seen); Bilirubin Negative (Negative); Blood Negative (Negative); Epithelial Cells None Seen /HPF (None Seen); Glucose, Urine Negative (Negative); Hyaline Casts NONE SEEN /LPF (0-2); Ketones Negative (Negative); Leukocyte Esterase Negative (Negative); Nitrite Negative (Negative); Ph 7.5 (4.6-8.0); Protein,Urine Dip Negative (Negative); RBC 0-2 /HPF (0-5); Specific Gravity 1.015 (1.005-1.030); WBC 0-2 /HPF (0-5)
--- NOTE | 2024-11-25 08:50 | XRAY ---
Indication: Seizure. Headache. Multiple contiguous axial images obtained through the head without contrast. Comparison: January 03, 2024 Stable prominent ventricular system. Again no acute intracranial hemorrhage, abnormal extra-axial fluid collection, or mass effect. Fourth ventricle is midline. Thompson-white matter differentiation preserved. Bony calvarium intact. Visualized paranasal sinuses and mastoid air cells are clear. Impression: Stable prominent ventricular system. No new/acute intracranial abnormalities.
== END 2024-11-24 20:45 | disposition home or self-care (01) ==
LOC: ED 18:00
DX: G40.909 Epilepsy, unspecified, not intractable, without status epilepticus (principal); N18.9 Chronic kidney disease, unspecified; R51.9 Headache, unspecified; Z79.899 Other long term (current) drug therapy
CPT/HCPCS: 36415; 70450; 80053; 81001; 83735; 83880; 84484; 85025; 93005; 93041; 94760; 96374; 99284; 99285; A9270-GY

== ENCOUNTER 2025-06-05 21:27 | Emergency (ER) | payer OTHER ==
[2025-06-05] MEDS ORDERED: Tegretol 200 MG PO ONE (21:32)
--- NOTE | 2025-06-05 21:37 | ERPHSYRPT ---
- History of Present Illness Time Seen by Provider: 06/05/25 21:31 Source: patient Exam Limitations: no limitations Physician History: 34-year-old male history of history of seizures presents emergency room status post seizure patient reports he had a single seizure prior to arrival denies any trauma patient reports he is complaining of a headache now but denies any tongue laceration denies any shoulder dislocation patient reports he is on Keppra per the prescription reports he is supposed to be on 3 tabs 2 times a day but reports he takes 2 tabs twice a day patient is also on lamotrigine 200 mg twice a day denies any missed dosages denies any fevers he reports he gets a seizure once or twice a month and this is in line with his baseline seizures patient is back to his baseline now in ED for further eval Timing/Duration: today, improved Severity: mild Character of Deficits: none Deficits: no difficulties Baseline/Normal Cognition: alert oriented x 3 Current Cognition: alert oriented x 3 Associated Symptoms: No confusion, No fatigue, No vomiting, No paresthesia, No slurred speech, No trouble walking Allergies/Adverse Reactions: No Known Drug Allergies Allergy (Unverified 06/05/25 21:55) - Review of Systems Constitutional: No Fever, No Chills Eyes: No Symptoms Ears, Nose, & Throat: No Symptoms Respiratory: No Cough, No Dyspnea Cardiac: No Chest Pain, No Edema, No Syncope Abdominal/Gastrointestinal: No Abdominal Pain, No Nausea, No Vomiting, No Diarrhea Genitourinary Symptoms: No Dysuria Musculoskeletal: No Back Pain, No Neck Pain Skin: No Rash Neurological: Seizure, No Dizziness, No Focal Weakness, No Sensory Changes Psychological: No Symptoms Endocrine: No Symptoms All Other Systems: Reviewed and Negative - Nursing Vital Signs Nursing Vital Signs: Initial Vital Signs Temperature 97.8 F 06/05/25 21:29 Pulse Rate 63 06/05/25 21:29 Respiratory Rate 18 06/05/25 21:29 Blood Pressure 137/80 06/05/25 21:29 O2 Sat by Pulse Oximetry 96 06/05/25 21:29 Pain Scale Pain Intensity 4 - Zander Coma Scale Best Eye Response ([place]): (4) open spontaneously Best Verbal Response ([place]): (5) oriented Best Motor Response ([place]): (6) obeys commands [place] Total: 15 - Physical Exam General Appearance: no apparent distress, alert Eye Exam: bilateral eye: PERRL, EOMI Ears, Nose, Throat Exam: normal ENT inspection, moist mucous membranes Neck Exam: normal inspection, non-tender, supple Respiratory: normal breath sounds, lungs clear, airway intact, No respiratory distress Cardiovascular: regular rate/rhythm, No edema Gastrointestinal: soft, No tenderness, No distention Back Exam: normal inspection Extremity Exam: normal inspection, No pedal edema Mental Status: alert, oriented x 3 warranty clerk Exam: tongue midline Coordination/Gait: normal finger to nose, normal gait Skin Exam: normal color, warm, dry, No rash - Course Nursing assessment & vital signs reviewed: Yes EKG Interpreted by Me: RATE (49), Sinus Cecil, Non-specific ST Changes, Other (no STEMI, early repoloarization) Ordered Tests: Active Orders 24 hr Category Date Time Status Hog Operator STAT Care 06/05/25 21:31 Active EKG-ER Only STAT Care 06/05/25 21:31 Active IV Insertion STAT Care 06/05/25 21:31 Active POCT Glucose Check STAT Care 06/05/25 21:31 Active Pulse Oximetry (ED) STAT Care 06/05/25 21:31 Active Seizure Precautions -SCCHED STAT Care 06/05/25 21:31 Active CBC W DIFF Stat Lab 06/05/25 21:40 Completed CMP Stat Lab 06/05/25 21:40 Completed MAGNESIUM Stat Lab 06/05/25 21:40 Completed POCT GLUCOSE Stat Lab 06/05/25 21:41 Completed Medication Summary Generic Name Dose Route Start Last Admin Trade Name Freq PRN Reason Stop Dose Admin Sodium Chloride 1,000 mls @ 999 mls/hr 06/05/25 21:31 06/05/25 21:58 Sodium Chloride 0.9% 1000 Ml IV 06/05/25 22:31 999 mls/hr .Q1H1M STA Administration Discontinued Medications Generic Name Dose Route Start Last Admin Trade Name Freq PRN Reason Stop Dose Admin Acetaminophen 650 mg 06/05/25 21:32 06/05/25 21:59 Acetaminophen 325 Mg Tablet PO 06/05/25 21:33 650 mg STAT STA Administration Acetaminophen Confirm 06/05/25 21:55 Acetaminophen 325 Mg Tablet Administered 06/05/25 21:56 Dose 650 mg .ROUTE .STK-MED ONE Carbamazepine 200 mg 06/05/25 21:32 Carbamazepine 200 Mg Tablet PO 06/05/25 21:33 ONCE ONE Sodium Chloride Confirm 06/05/25 21:55 Sodium Chloride 0.9% 1000 Ml Administered 06/05/25 21:56 Dose 1,000 mls @ ud .ROUTE .STK-MED ONE Lamotrigine 200 mg 06/05/25 21:34 06/05/25 22:01 Lamotrigine 100 Mg Tab PO 06/05/25 21:35 200 mg NOW ONE Administration Levetiracetam 1,500 mg 06/05/25 21:31 06/05/25 22:02 Levetiracetam 250 Mg Tablet PO 06/05/25 21:32 1,500 mg STAT ONE Administration Lab/Rad Data: Laboratory Result Diagrams 06/05/25 21:40 06/05/25 21:40 Laboratory Results 06/05/25 06/05/25 06/05/25 Range/Units 21:41 21:40 21:40 WBC 7.5 (4.23-9.07) x10^3/uL RBC 4.24 L (4.63-6.08) x10^6/uL Hgb 13.8 (13.7-17.5) g/dL Hct 41.5 (40.1-51.0) % MCV 97.9 H (79.0-92.2) fL MCH 32.5 H (25.7-32.2) pg MCHC 33.3 (32.3-36.5) g/dL RDW 13.3 (11.6-14.4) % Plt Count 152 L (163-337) x10^3/uL MPV 10.3 (9.4-12.4) fL Gran % 61.2 (34.0-67.9) % Immature Gran % (Auto) 0.1 (0.001-0.429) % Nucleat RBC Rel Count 0.0 (0.00-0.2) % Eos # (Auto) 0.39 (0.04-0.54) x10^3/uL Immature Gran # (Auto) 0.01 (0.001-0.031) x10^3u/L Absolute Lymphs (auto) 1.94 (1.32-3.57) x10^3/uL Absolute Monos (auto) 0.52 (0.30-0.82) x10^3/uL Absolute Nucleated RBC 0.00 (0.00-0.012) x10^3u/L Lymphocytes % 26.0 (21.8-53.1) % Monocytes % 7.0 (5.3-12.2) % Eosinophils % 5.2 (0.8-7.0) % Basophils % 0.5 (0.2-1.2) % Absolute Granulocytes 4.57 (1.78-5.38) x10^3/uL Basophils # 0.04 (0.01-0.08) x10^3/uL Sodium 139 (135-145) mmol/L Potassium 4.1 (3.5-5.1) mmol/L Chloride 99 (98-107) mmol/L Carbon Dioxide 29 (22-30) mmol/L Anion Gap 15.2 H (5-15) MEQ/L BUN 13 (9-20) mg/dL Creatinine 1.20 (0.66-1.25) mg/dL Estimated GFR 80.9 ML/MIN Glucose 99 (74-106) mg/dL POC Glucometer 94 (74 to 106) mg/dL Calcium 10.0 (8.4-10.2) mg/dL Magnesium 2.1 (1.6-2.3) mg/dL Total Bilirubin 0.10 L (0.2-1.3) mg/dL AST 44 (17-59) U/L ALT 31 (0-50) U/L Alkaline Phosphatase 61 (38-126) U/L Serum Total Protein 7.7 (6.3-8.2) g/dL Albumin 5.1 H (3.5-5.0) g/dL - Progress Progress Note: 06/05/25 22:12Patient is back to baseline mother is at bedside patient was given his evening meds advised to continue his regimen and to follow-up with neurology as needed recommend close return precautions - Departure Departure Disposition: Home Clinical Impression: Seizure Condition: Stable Critical Care Time: No Referrals: KIERRA REA [Primary Care Provider, NEUROLOGY] - Follow up/PCP as directed Instructions: Seizures, Adult (DC)
[2025-06-05 21:47] LABS: BASOPHIL % 0.5 % (0.2-1.2); Basophil (Absolute #) 0.04 x10^3/uL (0.01-0.08); Eosinophil (Absolute #) 0.39 x10^3/uL (0.04-0.54); Hematocrit 41.5 % (40.1-51.0); Hemoglobin 13.8 g/dL (13.7-17.5); IMMATURE GRAN # 0.01 x10^3u/L (0.001-0.031); IMMATURE GRAN % 0.1 % (0.001-0.429); Lymphocyte (Absolute #) 1.94 x10^3/uL (1.32-3.57); Mean Corpuscular Hemoglobin 32.5 pg (25.7-32.2); Mean Corpuscular Hgb Concent. 33.3 g/dL (32.3-36.5); Monocyte (Absolute #) 0.52 x10^3/uL (0.30-0.82); NUCLEATED RBC # 0.00 x10^3u/L (0.00-0.012); NUCLEATED RBC % 0.0 % (0.00-0.2); Platelet Count 152 x10^3/uL (163-337); Red Blood Count 4.24 x10^6/uL (4.63-6.08); White Blood Count 7.5 x10^3/uL (4.23-9.07)
[2025-06-05 21:55] VITALS: TEMP 97.8
[2025-06-05] MEDS ORDERED: TYLENOL 325 MG ONE (21:55)
[2025-06-05] MEDS: TYLENOL 325 MG PO STA (21:59)
[2025-06-05 22:01] LABS: Calcium 10.0 mg/dL (8.4-10.2); Carbon Dioxide 29.0 mmol/L (22-30); Creatinine 1 1.2 mg/dL (0.66-1.25); EST GLOMERULAR FILTRATION RATE 80.9 ML/MIN; Glucose 99.0 mg/dL (74-106); Potassium 4.1 mmol/L (3.5-5.1); SGOT/AST 44.0 U/L (17-59); SGPT/ALT 31.0 U/L (0-50); Total Protein 7.7 g/dL (6.3-8.2)
[2025-06-05] MEDS: lamICTAL 100MG TABLET PO ONE (22:01)
[2025-06-05] MEDS: Keppra 250 MG PO ONE (22:02)
[2025-06-05 22:07] VITALS: O2SAT 97
[2025-06-05 22:46] VITALS: BP 140/91; PULSE 51; RESP 18
== END 2025-06-05 22:45 | disposition home or self-care (01) ==
LOC: ED 21:27 → MERGE 21:27 → ED 22:45
DX: G40.909 Epilepsy, unspecified, not intractable, without status epilepticus (principal); R51.9 Headache, unspecified; Z79.899 Other long term (current) drug therapy